=== PATIENT | female | born 1945 | race Caucasian/White ===

== ENCOUNTER 2019-01-03 11:29 | Observation (INO) | payer MEDICARE, OTHER, MEDICAID ==
[2019-01-03 12:53] LABS: ADD MAN DIFF? NO
[2019-01-03 13:02] LABS: WHITE BLOOD COUNT 8.4 10^3/ul (4.8-10.8)
[2019-01-03 13:02] LABS: BASOPHILS % 0.5 % (0.0-2.0); EOSINOPHILS # 0.4 10^3/ul (0.0-0.5); EOSINOPHILS % 5.1 % (0.0-7.0); HEMATOCRIT 36.7 % (37.0-47.0); HEMOGLOBIN 12.1 g/dl (12.0-16.0); LYMPHOCYTES # 2.1 10^3/ul (0.8-2.9); LYMPHOCYTES % 24.9 % (15.0-51.0); MEAN CORPUSCULAR HEMOGLOBIN 30.9 pg (29.0-33.0); MEAN CORPUSCULAR VOLUME 93.6 fl (82.0-101.0); MEAN PLATELET VOLUME 12.6 fl (7.4-10.4); MONOCYTE # 0.6 10^3/ul (0.3-0.9); MONOCYTES % 6.6 % (0.0-11.0); NEUTROPHIL # 5.2 10^3/ul (1.6-7.5); NEUTROPHILS % 62.5 % (39.0-77.0); PLATELET COUNT 139 10^3/UL (140-415); RED BLOOD COUNT 3.92 10^6/ul (4.20-5.40); RED CELL DISTRIBUTION WIDTH 11.9 % (11.5-14.5)
[2019-01-03 13:14] LABS: ALANINE AMINOTRANSFERASE 23 IU/L (13-69); ALBUMIN 3.9 g/dl (3.3-4.9); ALBUMIN/GLOBULIN RATIO 1.05; ALKALINE PHOSPHATASE 53 IU/L (42-121); ANION GAP 10 (5-13); ASPARTATE AMINO TRANSFERASE 38 IU/L (15-46); BILIRUBIN,INDIRECT 0.2 mg/dl (0-1.1); BILIRUBIN,TOTAL 0.2 mg/dl (0.2-1.3); BLOOD UREA NITROGEN 24 mg/dl (7-20); CALCIUM 9.5 mg/dl (8.4-10.2); CARBON DIOXIDE 27 mmol/L (21-31); CHLORIDE 102 mmol/L (97-110); CREATININE 0.82 mg/dl (0.44-1.00); GLUCOSE 335 mg/dl (70-220); POTASSIUM 4.5 mmol/L (3.5-5.1); SODIUM 139 mmol/L (135-144); TOTAL PROTEIN 7.6 g/dl (6.1-8.1)
[2019-01-03 13:26] LABS: B-TYPE NATRIURETIC PEPTIDE 331 PG/ML (0-125); TROPONIN-I < 0.012 ng/ml (0.000-0.120)
[2019-01-03] MEDS: LORAZEPAM 1 MG TAB PO (14:23)
[2019-01-03] MEDS ORDERED: LORAZEPAM 2 MG INJ IV (15:00)
[2019-01-03] MEDS ORDERED: NACL 0.9% 3 ML SYG IV (15:00)
[2019-01-03] MEDS ORDERED: NITROGLYCERIN (SL) 0.4 MG TAB SL (15:00)
[2019-01-03] MEDS ORDERED: ACETAMINOPHEN 325 MG TAB PO (15:00)
[2019-01-03] MEDS ORDERED: hydrALAzine 20 MG INJ IV (15:30)
[2019-01-03] MEDS ORDERED: DEXTROSE 50% 50 ML SYRINGE IV ×2 (16:30)
[2019-01-03] MEDS ORDERED: GLUCOSE GEL 15 GRAM TUBE BUCCAL (16:30)
[2019-01-03] MEDS ORDERED: GLUCOSE GEL 15 GRAM TUBE PO ×2 (16:30)
[2019-01-03] MEDS ORDERED: GLUCAGON 1 MG INJ IM (16:30)
[2019-01-03 18:06] LABS: FREE T4 (FREE THYROXINE) 1.34 ng/dl (0.78-2.44)
[2019-01-03] MEDS: ASPIRIN 81 MG TAB PO (18:08)
[2019-01-03] MEDS: INSULIN ASPART [NOVOLOG] 3 ML PEN SC ×4 (18:14→21:08)
[2019-01-03 18:20] LABS: THYROID STIMULATING HORMONE 0.529 MIU/L (0.465-4.680)
[2019-01-03 18:27] LABS: HEMOGLOBIN A1C 8.2 % (0-5.9)
[2019-01-03 19:06] LABS: CREATINE KINASE 57 IU/L (23-200)
[2019-01-03 19:19] LABS: CK INDEX 2.5; CK-MB 1.44 ng/ml (0.0-2.4); TROPONIN-I < 0.012 ng/ml (0.000-0.120)
[2019-01-03] MEDS: ATORVASTATIN 40 MG TAB PO (20:46)
[2019-01-03] MEDS: INSULIN GLARGINE [LANTus] (100 UNITS/ML) SYG SC (21:08)
[2019-01-03] MEDS: ACCU-CHEK XX (23:44)
[2019-01-04] MEDS: INSULIN ASPART [NOVOLOG] 3 ML PEN SC ×7 (00:01→17:30)
[2019-01-04 01:47] LABS: CREATINE KINASE 53 IU/L (23-200)
[2019-01-04 01:59] LABS: CK INDEX 2.5; CK-MB 1.33 ng/ml (0.0-2.4); TROPONIN-I < 0.012 ng/ml (0.000-0.120)
[2019-01-04] MEDS: ACCU-CHEK XX (02:41)
[2019-01-04] MEDS: PANTOPRAZOLE (EC) 40 MG TAB PO (05:23)
[2019-01-04 05:32] LABS: ADD MAN DIFF? NO
[2019-01-04 05:37] LABS: WHITE BLOOD COUNT 6.4 10^3/ul (4.8-10.8)
[2019-01-04 05:37] LABS: BASOPHILS % 0.5 % (0.0-2.0); EOSINOPHILS # 0.4 10^3/ul (0.0-0.5); EOSINOPHILS % 5.8 % (0.0-7.0); HEMATOCRIT 36.9 % (37.0-47.0); LYMPHOCYTES % 30.7 % (15.0-51.0); MEAN CORPUSCULAR HEMOGLOBIN 30.5 pg (29.0-33.0); MEAN CORPUSCULAR HGB CONC 32.5 g/dl (32.0-37.0); MEAN CORPUSCULAR VOLUME 93.7 fl (82.0-101.0); MEAN PLATELET VOLUME 12.1 fl (7.4-10.4); MONOCYTE # 0.5 10^3/ul (0.3-0.9); MONOCYTES % 7.6 % (0.0-11.0); NEUTROPHIL # 3.5 10^3/ul (1.6-7.5); NEUTROPHILS % 55.1 % (39.0-77.0); PLATELET COUNT 135 10^3/UL (140-415); RED BLOOD COUNT 3.94 10^6/ul (4.20-5.40); RED CELL DISTRIBUTION WIDTH 11.9 % (11.5-14.5)
[2019-01-04 05:57] LABS: CHOL/HDL RATIO 3.8 RATIO; CHOLESTEROL 170 mg/dl (100-200); HDL CHOLESTEROL 44 mg/dl (33-92); LDL CHOLESTEROL,CALCULATED 96 mg/dl; MAGNESIUM 1.3 mg/dl (1.7-2.5); TRIGLYCERIDES 152 mg/dl (0-149)
[2019-01-04 05:59] LABS: ALANINE AMINOTRANSFERASE 24 IU/L (13-69); ALBUMIN 3.5 g/dl (3.3-4.9); ALKALINE PHOSPHATASE 53 IU/L (42-121); ANION GAP 6 (5-13); ASPARTATE AMINO TRANSFERASE 22 IU/L (15-46); BILIRUBIN,INDIRECT 0.2 mg/dl (0-1.1); BILIRUBIN,TOTAL 0.2 mg/dl (0.2-1.3); BLOOD UREA NITROGEN 22 mg/dl (7-20); CALCIUM 9.7 mg/dl (8.4-10.2); CARBON DIOXIDE 29 mmol/L (21-31); CHLORIDE 104 mmol/L (97-110); CREATININE 0.83 mg/dl (0.44-1.00); GLUCOSE 307 mg/dl (70-220); POTASSIUM 4.3 mmol/L (3.5-5.1); SODIUM 139 mmol/L (135-144)
[2019-01-04] MEDS: ASPIRIN (EC) 81 MG TAB PO (08:39)
[2019-01-04] MEDS: LISINOPRIL 5 MG TAB PO (08:40)
[2019-01-04] MEDS: ENOXAPARIN 40 MG/0.4 ML SYG SC (08:42)
[2019-01-04] MEDS: REGADENOSON 0.4 MG/5 ML SYG (13:08)
[2019-01-04] MEDS: MAGNESIUM SULFATE 3 GM in DEXTROSE 5% 100 ML IVPB (13:33)
== END 2019-01-04 18:39 | disposition home or self-care (01) ==
LOC: E/R 11:29 → 6WM 17:05
DX: R07.9 Chest pain, unspecified (principal); I10 Essential (primary) hypertension; E11.9 Type 2 diabetes mellitus without complications; E78.5 Hyperlipidemia, unspecified; K29.70 Gastritis, unspecified, without bleeding; E66.9 Obesity, unspecified; R94.31 Abnormal electrocardiogram [ECG] [EKG]; Z79.4 Long term (current) use of insulin; R06.02 Shortness of breath
CPT/HCPCS: 71045; 78452; 80053; 80061; 82550; 82553; 82962; 83036; 83735; 83880; 84100; 84439; 84443; 84484; 85025; 93005; 93017; 93306; G0378